=== PATIENT | female | born 1985 | race African-American/Black ===

== ENCOUNTER 2018-06-20 10:33 | Emergency (ER) | payer OTHER | END 2018-06-20 11:03 | disposition left against medical advice (07) | LOC: ERS 10:33 | DX: Z53.21 Procedure and treatment not carried out due to patient leaving prior to being seen by health care provider (principal) ==

== ENCOUNTER 2021-07-12 15:12 | Outpatient (CLI) | payer BC | END 2021-07-12 15:13 | disposition home or self-care (01) | LOC: BICRAD 15:12 | PROVIDERS: ATTEND Family Medicine | DX: M54.50 Low back pain, unspecified (principal); M47.816 Spondylosis without myelopathy or radiculopathy, lumbar region | CPT/HCPCS: 72100 ==

== ENCOUNTER 2022-05-09 14:05 | Outpatient (CLI) | payer BC | END 2022-05-09 14:06 | disposition home or self-care (01) | LOC: BICULT 14:05 → ULT 14:06 | PROVIDERS: ATTEND Obstetrics & Gynecology | DX: D21.9 Benign neoplasm of connective and other soft tissue, unspecified (principal); N83.202 Unspecified ovarian cyst, left side | CPT/HCPCS: 76856 ==

== ENCOUNTER 2023-07-24 08:31 | Outpatient (CLI) | payer BC | END 2023-07-24 08:32 | disposition home or self-care (01) | LOC: ULT 08:31 | PROVIDERS: ATTEND Obstetrics & Gynecology | DX: N83.202 Unspecified ovarian cyst, left side (principal); R93.89 Abnormal findings on diagnostic imaging of other specified body structures; N83.8 Other noninflammatory disorders of ovary, fallopian tube and broad ligament | CPT/HCPCS: 76856 ==